=== PATIENT | male | born 1995 | race Caucasian/White ===

== ENCOUNTER → 2017-08-16 | Outpatient (CLI) | payer OTHER ==
--- NOTE | 2017-08-16 11:00 | RAD ---
Examination: CT chest without contrast History: History of cough, recurrent pneumonia Comparison: None available PQRS Compliance Statement: One or more of the following individualized dose reduction techniques were utilized for this examination: 1. Automated exposure control 2. Adjustment of the mA and/or kV according to patient size 3. Use of iterative reconstruction technique Findings: The visualized thyroid gland demonstrates a 1.3 cm hypodense nodule identified in the left lobe of the thyroid gland. The central airways are patent. The heart size grossly appears unremarkable. No radiologically significant mediastinal lymphadenopathy is identified. Minimal faint groundglass airspace opacities identified in the bibasal lungs likely atelectasis or minimal groundglass infiltrates. No evidence of pleural effusion or pneumothorax. The visualized noncontrasted liver, spleen, adrenals grossly appears unremarkable. No evidence of lytic bony destructive lesion. Impression: 1. Minimal groundglass patchy opacities identified in the bibasal lungs likely atelectasis or groundglass infiltrates. Follow-up to resolution. 2. 1.3 cm hypodense nodule identified in the left lobe of the thyroid gland. Follow-up ultrasound thyroid gland is recommended.
== END | disposition home or self-care (01) ==
LOC: CT 10:28
PROVIDERS: ATTEND Nurse Practitioner Family
DX: R06.02 Shortness of breath (principal); R91.8 Other nonspecific abnormal finding of lung field
CPT/HCPCS: 71250

== ENCOUNTER 2018-07-11 04:39 | Emergency (ER) | payer OTHER ==
[~2018-07-11] VITALS: Ht 172.7 cm; Wt 83.9 kg
--- NOTE | 2018-07-11 04:41 | ED.ADGEN ---
Past History Past Medical History: Asthma, GERD, Other (RON CADENA MD) Past Medical History IgG and IgA deficient (RON CADENA MD) Smoking: Non-smoker (RON CADENA MD) Departure: Impression: Primary Impression: Acute gastroenteritis Disposition: HOME, SELF-CARE (at 0808) Condition: IMPROVED Patient Instructions: Viral Gastroenteritis Additional Instructions: Drink plenty of liquids Follow-up with your primary care physician in 3-5 days Return to ER if not getting better Do not take solid foods today Scripts Ondansetron Hcl (ZOFRAN) 4 Mg Tablet 1 TAB PO Q6HRS for nausea and vomiting, #12 TAB Prov: CALDERON BINGHAM MD 07/11/18 Hydrocodone Bit/Acetaminophen (NORCO 5-325 TABLET) 1 Each Tablet 1 TAB PO PRN Q6HRS PRN for PAIN, #10 TAB 0 Refills Prov: CALDERON BINGHAM MD 07/11/18 Adult General Chief Complaint Chief Complaint ".. I ve been puking constant since about 1:00.. and vomited about 30+ times... I finally woke her up and told her .. I need to come in... ".. "My stomach been hurting from the start... ".. I did eat some chicken and sausage gumbo.. and have a beer at 6:30 last night.. but did not get sick until after midnight..." (RON CADENA MD) HPI HPI Patient is a 23 year old male who presents with above hx and complaints of abd. pain, nausea and vomiting. Patient reports multiple episodes of vomiting and now dry heaving. Patient localizes his pain epigastric and mid abdomen area. Patient does have a history of GERD and is on chronic omeprazole. Patient also has a history of IgG and IgA deficiencies. Patient also has chronic asthma and follows with a tankroom tender. Patient denies any travel or specific ill contacts. Patient denies any trauma. Patient works as a rip saw operator. There is a family history of gallbladder disease and his sister has had cholecystectomy. (RON CADENA MD) Review of Systems Review of Systems Constitutional: Denies fever or chills [] Eyes: Denies change in visual acuity, redness, or eye pain [] HENT: Denies nasal congestion or sore throat [] Respiratory: History of chronic asthma Cardiovascular: No additional information not addressed in HPI [] GI: Complaints of epigastric abdominal pain, nausea, vomiting,. Denies bloody stools or diarrhea [] : Denies dysuria or hematuria [] Musculoskeletal: Denies back pain or joint pain [] Integument: Denies rash or skin lesions [] Neurologic: Denies headache, focal weakness or sensory changes [] Endocrine: Denies polyuria or polydipsia [] All other systems were reviewed and found to be within normal limits, except as documented in this note. (RON CADENA MD) Family History Family History Sister has has cholecystectomy (RON CADENA MD) Current Medications Current Medications Current Medications Medications (Trade) Dose Ordered Sig/Marcus Start Time Stop Time Status Last Admin Dose Admin Acetaminophen/ Hydrocodone Bitart (Lortab 5/325) 1 tab 1X ONCE 07/11/18 08:15 07/11/18 08:16 DC Famotidine (Pepcid Vial) 20 mg 1X ONCE 07/11/18 05:00 07/11/18 05:41 DC 07/11/18 05:06 20 MG Info (Do NOT chart on this entry -- for MONITORING) 1 each PRN DAILY PRN 07/11/18 05:45 07/13/18 05:44 Iohexol (Omnipaque 240 Mg/ml) 30 ml 1X ONCE 07/11/18 05:45 07/11/18 05:46 DC 07/11/18 06:45 30 ML Iohexol (Omnipaque 300 Mg/ml) 75 ml 1X ONCE 07/11/18 05:45 07/11/18 05:46 DC 07/11/18 06:45 75 ML Ketorolac Tromethamine (Toradol 30mg Vial) 30 mg 1X ONCE 07/11/18 07:30 07/11/18 07:37 DC 07/11/18 07:48 30 MG Lactated Ringer's 1,000 ml @ 1,000 mls/hr Q1H 07/11/18 04:49 07/11/18 05:48 DC 07/11/18 05:00 1,000 MLS/HR Loperamide HCl (Imodium) 4 mg 1X ONCE 07/11/18 08:15 07/11/18 08:16 DC Morphine Sulfate (Morphine 10mg Syringe) 10 mg 1X ONCE 07/11/18 05:15 07/11/18 05:41 DC 07/11/18 05:24 10 MG Ondansetron HCl (Zofran) 8 mg 1X ONCE 07/11/18 05:15 07/11/18 05:41 DC 07/11/18 06:18 8 MG (CALDERON BINGHAM MD) Allergies Allergies Allergies Coded Allergies Type Severity Reaction Last Updated Verified No Known Allergies Allergy Unknown 07/11/18 Yes (CALDERON BINGHAM MD) Physical Exam Physical Exam Constitutional: Well developed, well nourished, in acute distress, non-toxic appearance. [] HENT: Normocephalic, atraumatic, bilateral external ears normal, oropharynx dry , no oral exudates, nose normal. [] Eyes: PERRLA, EOMI, conjunctiva normal, no discharge. [] Neck: Normal range of motion, no tenderness, supple, no stridor. [] Cardiovascular: Tachycardia Heart rate regular rhythm, no murmur [] Lungs & Thorax: Bilateral breath sounds equal at apex with scattered wheezes on auscultation [] Abdomen: Bowel sounds hyperactive, soft, mid to epigastric tenderness, no masses , no pulsatile masses. Declines rectal at this time. Rebound to epigastric area. Tympanic. Skin: Warm, dry, no erythema, no rash. [] Back: No tenderness, no CVA tenderness. [] Extremities: No tenderness, no cyanosis, no clubbing, ROM intact, no edema. [] No psoas, or heeltap sign Neurologic: Alert and oriented X 3, normal motor function, normal sensory function, no focal deficits noted. [] Psychologic: Affect anxious, judgement normal, mood normal. [] (RON CADENA MD) Current Patient Data Vital Signs Vital Signs Date Time Temp Pulse Resp B/P (MAP) Pulse Ox O2 Delivery O2 Flow Rate FiO2 07/11/18 05:42 108 135/84 (101) 98 07/11/18 05:24 20 Room Air 07/11/18 04:43 98.1 (CALDERON BINGHAM MD) Lab Results Laboratory Tests Test 07/11/18 04:55 07/11/18 06:08 White Blood Count 13.6 x10^3/uL (4.0-11.0) H Red Blood Count 5.54 x10^6/uL (4.30-5.70) Hemoglobin 17.1 g/dL (13.0-17.5) Hematocrit 50.3 % (39.0-53.0) Mean Corpuscular Volume 91 fL (79-100) Mean Corpuscular Hemoglobin 31 pg (25-35) Mean Corpuscular Hemoglobin Concent 34 g/dL (31-37) Red Cell Distribution Width 13.1 % (11.5-14.5) Platelet Count 207 x10^3/uL (140-400) Neutrophils (%) (Auto) 83 % (31-73) H Lymphocytes (%) (Auto) 8 % (24-48) L Monocytes (%) (Auto) 9 % (0-9) Eosinophils (%) (Auto) 0 % (0-3) Basophils (%) (Auto) 0 % (0-3) Neutrophils # (Auto) 11.3 x10^3uL (1.8-7.7) H Lymphocytes # (Auto) 1.0 x10^3/uL (1.0-4.8) Monocytes # (Auto) 1.3 x10^3/uL (0.0-1.1) H Eosinophils # (Auto) 0.0 x10^3/uL (0.0-0.7) Basophils # (Auto) 0.0 x10^3/uL (0.0-0.2) Prothrombin Time 10.4 SEC (9.4-11.4) Prothrombin Time INR 1.0 (0.9-1.1) PTT 24 SEC (23-33) Sodium Level 142 mmol/L (136-145) Potassium Level 4.1 mmol/L (3.5-5.1) Chloride Level 104 mmol/L (98-107) Carbon Dioxide Level 26 mmol/L (21-32) Anion Gap 12 (6-14) Blood Urea Nitrogen 13 mg/dL (8-26) Creatinine 1.1 mg/dL (0.7-1.3) Estimated GFR (Cockcroft-Gault) 82.2 Glucose Level 101 mg/dL (70-99) H Calcium Level 8.8 mg/dL (8.5-10.1) Total Bilirubin 0.6 mg/dL (0.2-1.0) Direct Bilirubin 0.1 mg/dL (0.0-0.2) Aspartate Amino Transferase (AST) 23 U/L (15-37) Alanine Aminotransferase (ALT) 59 U/L (16-63) Alkaline Phosphatase 61 U/L (46-116) Total Protein 7.8 g/dL (6.4-8.2) Albumin 4.3 g/dL (3.4-5.0) Amylase Level 59 U/L (25-115) Lipase 167 U/L (73-393) Urine Collection Type Unknown Urine Color Yellow Urine Clarity Hazy Urine pH 7.5 Urine Specific Union 1.015 Urine Protein Neg (NEG-TRACE) Urine Glucose (UA) Neg mg/dL (NEG) Urine Ketones (Stick) Trace mg/dL (NEG) Urine Blood Trace (NEG) Urine Nitrite Neg (NEG) Urine Bilirubin Neg (NEG) Urine Urobilinogen Dipstick 0.2 mg/dL (0.2 mg/dL) Urine Leukocyte Esterase Neg (NEG) Urine RBC 0 /HPF (0-2) Urine WBC 0 /HPF (0-4) Urine Squamous Epithelial Cells Occ /LPF Urine Bacteria 0 /HPF (0-FEW) Urine Opiates Screen Pos (NEG) Urine Methadone Screen Neg (NEG) Urine Barbiturates Neg (NEG) Urine Phencyclidine Screen Neg (NEG) Urine Amphetamine/Methamphetamine Neg (NEG) Urine Benzodiazepines Screen Neg (NEG) Urine Cocaine Screen Neg (NEG) Urine Cannabinoids Screen Neg (NEG) Urine Ethyl Alcohol Neg (NEG) (CALDERON BINGHAM MD) Lab Results Laboratory Tests Test 07/11/18 04:55 07/11/18 06:08 White Blood Count 13.6 x10^3/uL (4.0-11.0) H Red Blood Count 5.54 x10^6/uL (4.30-5.70) Hemoglobin 17.1 g/dL (13.0-17.5) Hematocrit 50.3 % (39.0-53.0) Mean Corpuscular Volume 91 fL (79-100) Mean Corpuscular Hemoglobin 31 pg (25-35) Mean Corpuscular Hemoglobin Concent 34 g/dL (31-37) Red Cell Distribution Width 13.1 % (11.5-14.5) Platelet Count 207 x10^3/uL (140-400) Neutrophils (%) (Auto) 83 % (31-73) H Lymphocytes (%) (Auto) 8 % (24-48) L Monocytes (%) (Auto) 9 % (0-9) Eosinophils (%) (Auto) 0 % (0-3) Basophils (%) (Auto) 0 % (0-3) Neutrophils # (Auto) 11.3 x10^3uL (1.8-7.7) H Lymphocytes # (Auto) 1.0 x10^3/uL (1.0-4.8) Monocytes # (Auto) 1.3 x10^3/uL (0.0-1.1) H Eosinophils # (Auto) 0.0 x10^3/uL (0.0-0.7) Basophils # (Auto) 0.0 x10^3/uL (0.0-0.2) Prothrombin Time 10.4 SEC (9.4-11.4) Prothrombin Time INR 1.0 (0.9-1.1) PTT 24 SEC (23-33) Sodium Level 142 mmol/L (136-145) Potassium Level 4.1 mmol/L (3.5-5.1) Chloride Level 104 mmol/L (98-107) Carbon Dioxide Level 26 mmol/L (21-32) Anion Gap 12 (6-14) Blood Urea Nitrogen 13 mg/dL (8-26) Creatinine 1.1 mg/dL (0.7-1.3) Estimated GFR (Cockcroft-Gault) 82.2 Glucose Level 101 mg/dL (70-99) H Calcium Level 8.8 mg/dL (8.5-10.1) Total Bilirubin 0.6 mg/dL (0.2-1.0) Direct Bilirubin 0.1 mg/dL (0.0-0.2) Aspartate Amino Transferase (AST) 23 U/L (15-37) Alanine Aminotransferase (ALT) 59 U/L (16-63) Alkaline Phosphatase 61 U/L (46-116) Total Protein 7.8 g/dL (6.4-8.2) Albumin 4.3 g/dL (3.4-5.0) Amylase Level 59 U/L (25-115) Lipase 167 U/L (73-393) Urine Collection Type Unknown Urine Color Yellow Urine Clarity Hazy Urine pH 7.5 Urine Specific Union 1.015 Urine Protein Neg (NEG-TRACE) Urine Glucose (UA) Neg mg/dL (NEG) Urine Ketones (Stick) Trace mg/dL (NEG) Urine Blood Trace (NEG) Urine Nitrite Neg (NEG) Urine Bilirubin Neg (NEG) Urine Urobilinogen Dipstick 0.2 mg/dL (0.2 mg/dL) Urine Leukocyte Esterase Neg (NEG) Urine RBC 0 /HPF (0-2) Urine WBC 0 /HPF (0-4) Urine Squamous Epithelial Cells Occ /LPF Urine Bacteria 0 /HPF (0-FEW) Urine Opiates Screen Pos (NEG) Urine Methadone Screen Neg (NEG) Urine Barbiturates Neg (NEG) Urine Phencyclidine Screen Neg (NEG) Urine Amphetamine/Methamphetamine Neg (NEG) Urine Benzodiazepines Screen Neg (NEG) Urine Cocaine Screen Neg (NEG) Urine Cannabinoids Screen Neg (NEG) Urine Ethyl Alcohol Neg (NEG) (RON CADENA MD) EKG EKG [] (RON CADENA MD) Radiology/Procedures Radiology/Procedures My interpretation acute abdomen film shows no acute cardio pulmonary findings. No free air in the diaphragm. Bowel gas pattern is somewhat suggestive of ileus or at least partial ileus.[] (RON CADENA MD) Radiology/[place] [address] IMAGING REPORT Signed PATIENT: RAYMUNDOMEGAN ACCOUNT: [id number] : 1995 LOCATION: ER AGE: 23 SEX: M EXAM STATUS: REG ER ORD. PHYSICIAN: RON CADENA MD REASON: n/v PROCEDURE: CT ABD PELV W/ORAL&IV CONTRAST CT abdomen and pelvis with contrast: Reason for examination: Right lower abdominal pain with vomiting for one day. Helical images were obtained through the abdomen and pelvis with intravenous administration of 75 cc Omnipaque 300 and 30 cc Omnipaque 240 given orally. Reconstruction was performed in sagittal and coronal planes. Exposure: One or more of the following individualized dose reduction techniques were utilized for this examination: 1. Automated exposure control 2. Adjustment of the mA and/or kV according to patient size 3. Use of iterative reconstruction technique. The lung bases are clear. The heart size is normal with no pericardial effusion. No abnormality seen at the liver, spleen, adrenal glands, gallbladder or pancreas. The abdominal aorta and inferior vena cava show no acute abnormalities. The kidneys show a small hypodense lesion consistent with a cyst at the lower pole left kidney measuring 1 cm in size. No renal calculi, hydronephrosis or obstructive uropathy is evident. No abnormality seen at the appendix. There is no evidence of diverticulosis or diverticulitis. Oral contrast is present in the stomach and proximal small intestine. The small intestinal tract is not thickened and does not appear dilated or obstructed. No abnormality seen at the bladder, prostate gland or seminal vesicles. No free fluid or free air is seen in the abdomen or pelvis. IMPRESSION: Small cyst at the lower pole of the left kidney. No obstructive uropathy in the kidneys. No abnormality seen at the appendix. No other focal abnormality seen in the abdomen or pelvis. Electronically signed by: Caitlyn Velazco MD (07/11/2018 7:16 AM) [facility] [place] DICTATED AND SIGNED BY: CAITLYN VELAZCO MD DATE: 07/11/18705 CC: RON CADENA MD; CALDERON BINGHAM MD; [employer] ~ (CALDERON BINGHAM MD) Course & Med Decision Making Course & Med Decision Making Pertinent Labs and Imaging studies reviewed. (See chart for details) Pt. checked out to Dr. Bingham at 0600- she will make final disposition of pt. [] (RON CADENA MD) Course & Med Decision Making Patient care transferred to de at [address] Cadena for following the results of CT of abdomen and pelvis. Evaluation of patient in ER showed 23-year-old male patient with complaining of multiple episodes of nausea and vomiting and diarrhea. CT of abdomen and pelvis did not show acute finding. Patient tolerated oral intake. Plan discharge patient home with diagnosis of acute gastroenteritis. (CALDERON BINGHAM MD) Final Impression Final Impression 1. Abdomen pain 2. Nausea and vomiting[] 3. Hx. of IgG and IgA deficiency 4. History GERD 5. History of chronic asthma 6. Leukocytosis 13.6 (RON CADENA MD) Dragon Disclaimer Dragon Disclaimer This electronic medical record was generated, in whole or in part, using a voice recognition dictation system. (RON CADENA MD) RON CADENA MD Jul 11, 2018 04:41 CALDERON BINGHAM MD Jul 11, 2018 08:11
[2018-07-11] MEDS ORDERED: IV RINGERS SOLUTION,LACTATED 1,000 ML IV SCH (04:49)
[2018-07-11] MEDS ORDERED: ONDANSETRON PF 4 MG/2 ML VIAL. ONE (04:49)
[2018-07-11] MEDS ORDERED: ONDANSETRON PF 4 MG/2 ML VIAL. IV ONE ×2 (05:00→05:15)
[2018-07-11] MEDS ORDERED: FAMOTIDINE 20 MG/2 ML VIAL IVP ONE (05:00)
[2018-07-11] MEDS ORDERED: MORPHINE SULFATE 10 MG/ML SYRINGE. SQ ONE (05:15)
[2018-07-11 05:21] LABS: BASO % 0 % (0-3); EOS % 0 % (0-3); HEMATOCRIT 50.3 % (39.0-53.0); HEMOGLOBIN 17.1 g/dL (13.0-17.5); LYMPH % 8 % (24-48); MEAN CORPUSCULAR HEMOGLOBIN 31 pg (25-35); MEAN CORPUSCULAR HGB CONC 34 g/dL (31-37); MEAN CORPUSCULAR VOLUME 91 fL (79-100); MONO # 1.3 x10^3/uL (0.0-1.1); MONO % 9 % (0-9); NEUT # 11.3 x10^3uL (1.8-7.7); NEUT % 83 % (31-73); PLATELET COUNT 207 x10^3/uL (140-400); RED BLOOD COUNT 5.54 x10^6/uL (4.30-5.70); RED CELL DISTRIBUTION WIDTH 13.1 % (11.5-14.5); WHITE BLOOD COUNT 13.6 x10^3/uL (4.0-11.0)
[2018-07-11 05:31] LABS: ALBUMIN 4.3 g/dL (3.4-5.0); CALCIUM 8.8 mg/dL (8.5-10.1); CREATININE 1.1 mg/dL (0.7-1.3); DIRECT BILIRUBIN 0.1 mg/dL (0.0-0.2); GFR 82.2; POTASSIUM 4.1 mmol/L (3.5-5.1); TOTAL BILIRUBIN 0.6 mg/dL (0.2-1.0); TOTAL PROTEIN 7.8 g/dL (6.4-8.2)
[2018-07-11] MEDS ORDERED: IOHEXOL 300 MG/ML 75 ML VIAL. IV ONE (05:45)
[2018-07-11] MEDS ORDERED: CONTRAST GIVEN MC PRN (05:45)
[2018-07-11] MEDS ORDERED: IOHEXOL 240 MG/ML 50ML VIAL. PO ONE (05:45)
[2018-07-11 06:32] LABS: AMPHETAMINE/METHAMPHETAMINE NEG (NEG); BARBITURATES NEG (NEG); BENZODIAZEPINES NEG (NEG); CANNABINOIDS NEG (NEG); COCAINE NEG (NEG); METHADONE NEG (NEG); OPIATES POS (NEG); PHENCYCLIDINE NEG (NEG)
[2018-07-11 06:53] LABS: BILIRUBIN,URINE NEG (NEG); CLARITY,URINE HAZY; COLOR,URINE YELLOW; GLUCOSE,URINE NEG (NEG)
[2018-07-11 06:54] LABS: BACTERIA,URINE 0 /HPF (0-FEW); NITRITE,URINE NEG (NEG); RBC,URINE 0 /HPF (0-2); SQUAMOUS EPITHELIAL CELL,UR OCC /LPF; UROBILINOGEN,URINE 0.2 mg/dL (0.2 mg/dL); WBC,URINE 0 /HPF (0-4)
--- NOTE | 2018-07-11 07:20 | RAD ---
CT abdomen and pelvis with contrast: Reason for examination: Right lower abdominal pain with vomiting for one day. Helical images were obtained through the abdomen and pelvis with intravenous administration of 75 cc Omnipaque 300 and 30 cc Omnipaque 240 given orally. Reconstruction was performed in sagittal and coronal planes. Exposure: One or more of the following individualized dose reduction techniques were utilized for this examination: 1. Automated exposure control 2. Adjustment of the mA and/or kV according to patient size 3. Use of iterative reconstruction technique. The lung bases are clear. The heart size is normal with no pericardial effusion. No abnormality seen at the liver, spleen, adrenal glands, gallbladder or pancreas. The abdominal aorta and inferior vena cava show no acute abnormalities. The kidneys show a small hypodense lesion consistent with a cyst at the lower pole left kidney measuring 1 cm in size. No renal calculi, hydronephrosis or obstructive uropathy is evident. No abnormality seen at the appendix. There is no evidence of diverticulosis or diverticulitis. Oral contrast is present in the stomach and proximal small intestine. The small intestinal tract is not thickened and does not appear dilated or obstructed. No abnormality seen at the bladder, prostate gland or seminal vesicles. No free fluid or free air is seen in the abdomen or pelvis. IMPRESSION: Small cyst at the lower pole of the left kidney. No obstructive uropathy in the kidneys. No abnormality seen at the appendix. No other focal abnormality seen in the abdomen or pelvis. Electronically signed by: Renuka Tom MD (07/11/2018 7:16 AM) [id number]
[2018-07-11] MEDS ORDERED: KETOROLAC 30 MG/ML VIAL. IV ONE (07:30)
--- NOTE | 2018-07-11 07:52 | RAD ---
Acute abdomen series with chest, 3 views, 07/11/2017: HISTORY: Abdominal pain, nausea and vomiting There are scattered air-fluid levels in the GI tract. The bowel loops are not dilated. No free air seen in the abdomen. There is no evidence organomegaly or abnormal abdominal calcification. The heart size is normal. The lungs are clear. There is no evidence of pleural fluid. IMPRESSION: Scattered air-fluid levels in the GI tract may reflect fluid in the colon due to diarrhea or an ileus. Electronically signed by: Onel Butler MD (07/11/2018 7:48 AM) [facility]
[2018-07-11] MEDS ORDERED: ONDA4TAB7 PO (08:11)
[2018-07-11] MEDS ORDERED: HYDR-3165 PO (08:11)
[2018-07-11] MEDS ORDERED: LOPERAMIDE 2 MG CAPSULE PO ONE (08:15)
[2018-07-11] MEDS ORDERED: HYDROcodone/APAP 5/325MG 1 TAB TABLET PO ONE (08:15)
[2018-07-11 08:40] VITALS: BP 129/78
== END 2018-07-11 08:41 | disposition home or self-care (01) ==
LOC: ER 04:39
DX: K52.9 Noninfective gastroenteritis and colitis, unspecified (principal); K21.9 Gastro-esophageal reflux disease without esophagitis; J45.998 Other asthma; D72.829 Elevated white blood cell count, unspecified
CPT/HCPCS: 36415; 74022; 74177; 80048; 80076; 80307; 81001; 82150; 83690; 85025; 85610; 85730; 96361; 96372; 96374; 96375; 96376; 99284; J1885; J2270; J2405; J3490; J7120; Q9966; Q9967